=== PATIENT | female | born 1985 | race African-American/Black ===

== ENCOUNTER 2021-03-21 14:49 | Inpatient (IN) | payer OTHER ==
[~2021-03-21] VITALS: Ht 171.4 cm; Wt 82.0 kg
[~2021-03-21 14:49] MED LIST: MORPHINE SULFATE 4 MG/ML VIAL. IV PRN
[2021-03-21] MEDS ORDERED: OXYC1TAB15 PO (15:35)
[2021-03-21] MEDS ORDERED: CLIN300C9 PO (15:35)
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
[2021-03-21] MEDS ORDERED: CLINDAMYCIN 600MG PREMIX 50 ML IV ONE (16:45)
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
[2021-03-21 17:36] LABS: BASO # 0.1 x10^3/uL (0.0-0.2); BASO % 1 % (0-3); EOS # 0.1 x10^3/uL (0.0-0.7); EOS % 1 % (0-3); HEMATOCRIT 34.8 % (36.0-47.0); HEMOGLOBIN 11.5 g/dL (12.0-15.5); LYMPH % 23 % (24-48); MEAN CORPUSCULAR HEMOGLOBIN 29 pg (25-35); MEAN CORPUSCULAR HGB CONC 33 g/dL (31-37); MEAN CORPUSCULAR VOLUME 88 fL (79-100); MONO # 0.5 x10^3/uL (0.0-1.1); MONO % 6 % (0-9); NEUT % 70 % (31-73); PLATELET COUNT 473 x10^3/uL (140-400); RED BLOOD COUNT 3.94 x10^6/uL (3.50-5.40); RED CELL DISTRIBUTION WIDTH 13.7 % (11.5-14.5); WHITE BLOOD COUNT 8.7 x10^3/uL (4.0-11.0)
[2021-03-21 17:45] LABS: CALCIUM 8.7 mg/dL (8.5-10.1); CREATININE 0.8 mg/dL (0.6-1.0); GFR 99.4; POTASSIUM 4.1 mmol/L (3.5-5.1)
[2021-03-21] MEDS ORDERED: SENNOSIDES 8.6 MG TABLET PO PRN (18:00)
[2021-03-21] MEDS ORDERED: DEXTROSE 50% 25 GM / 50ML DISP.SYRIN. IV PRN (18:00)
[2021-03-21] MEDS ORDERED: ONDANSETRON PF 4 MG/2 ML VIAL. IVP PRN (18:00)
[2021-03-21] MEDS ORDERED: DOCUSATE SODIUM 100 MG CAPSULE. PO PRN (18:00)
[2021-03-21] MEDS ORDERED: ACETAMINOPHEN 325 MG TABLET. PO PRN (18:00)
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
[2021-03-21 19:15] VITALS: BP 128/73
[2021-03-21] MEDS: IV NORMAL SALINE 1000ML BAG 1,000 ML IV SCH (20:53)
[2021-03-21] MEDS: oxyCODONE/APAP 5/325 1 TAB TABLET PO PRN (21:31)
[2021-03-21] MEDS: NICOTINE 7MG PATCH. TD SCH (22:49)
[2021-03-21 23:00] VITALS: BP 127/90
--- NOTE | 2021-03-21 23:00 | NUR ---
ADMIT NOTE The patient, CASIE BAIRD, 35 y/o, F admitted by ALONSO BLOOD MD, was given written information regarding hospital policies, unit procedures and contact persons. Patient orientated to unit, admit packed reviewed, and plan of care discussed. Admission wound photos completed by [facility] in ER. Patient's allergies and preferred pharmacy verified and pt reports no active home medications at this time. Patient resting in bed, bed in lowest/locked position, and call light within reach; no other needs voiced at this time.
[2021-03-22 03:09] VITALS: BP 107/55
[2021-03-22] MEDS: IV NORMAL SALINE 1000ML BAG 1,000 ML IV SCH ×2 (06:13→15:38)
[2021-03-22] MEDS: MORPHINE SULFATE 2 MG/ML VIAL. IV PRN ×2 (06:26→09:06)
[2021-03-22 07:07] VITALS: BP 111/72
[2021-03-22 07:25] LABS: BASO % 1 % (0-3); EOS # 0.1 x10^3/uL (0.0-0.7); EOS % 2 % (0-3); HEMOGLOBIN 9.9 g/dL (12.0-15.5); LYMPH # 2.1 x10^3/uL (1.0-4.8); LYMPH % 38 % (24-48); MEAN CORPUSCULAR HEMOGLOBIN 30 pg (25-35); MEAN CORPUSCULAR HGB CONC 33 g/dL (31-37); MEAN CORPUSCULAR VOLUME 89 fL (79-100); MONO # 0.5 x10^3/uL (0.0-1.1); MONO % 9 % (0-9); NEUT # 2.8 x10^3/uL (1.8-7.7); NEUT % 51 % (31-73); PLATELET COUNT 405 x10^3/uL (140-400); RED BLOOD COUNT 3.37 x10^6/uL (3.50-5.40); RED CELL DISTRIBUTION WIDTH 13.8 % (11.5-14.5); WHITE BLOOD COUNT 5.6 x10^3/uL (4.0-11.0)
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
[2021-03-22 07:49] LABS: CALCIUM 8.3 mg/dL (8.5-10.1); CREATININE 0.8 mg/dL (0.6-1.0); GFR 99.4; MAGNESIUM 1.8 mg/dL (1.8-2.4); PHOSPHORUS 4.3 mg/dL (2.6-4.7); POTASSIUM 4.1 mmol/L (3.5-5.1)
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
[2021-03-22] MEDS ORDERED: C.DIFF MED SCREEN BY RX. MC ONE (09:00)
[2021-03-22] MEDS: NICOTINE 7MG PATCH. TD SCH (09:01)
[2021-03-22 10:29] VITALS: BP 108/68
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
[2021-03-22] MEDS: CLINDAMYCIN 600MG PREMIX 50 ML IV SCH ×2 (11:35→22:28)
[2021-03-22 14:45] VITALS: BP 121/80
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
[2021-03-22 19:00] VITALS: BP 113/77
[2021-03-22] MEDS: LACTOBACILLUS RHAMNOSUS GG 1 CAPSULE. PO SCH (20:01)
[2021-03-22] MEDS: oxyCODONE/APAP 5/325 1 TAB TABLET PO PRN (20:02)
[2021-03-22] MEDS: ZOLPIDEM 5 MG TABLET. PO PRN (22:28)
[2021-03-22 22:53] VITALS: BP 102/68
[2021-03-23] MEDS: IV NORMAL SALINE 1000ML BAG 1,000 ML IV SCH ×3 (00:54→23:48)
[2021-03-23 03:00] VITALS: BP 107/73
[2021-03-23] MEDS: CLINDAMYCIN 600MG PREMIX 50 ML IV SCH ×3 (06:17→21:04)
[2021-03-23 07:00] VITALS: BP 114/77
[2021-03-23] MEDS: LACTOBACILLUS RHAMNOSUS GG 1 CAPSULE. PO SCH ×2 (08:04→21:04)
[2021-03-23] MEDS: NICOTINE 7MG PATCH. TD SCH (08:06)
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
[2021-03-23 11:00] VITALS: BP 118/80
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
[2021-03-23] MEDS: oxyCODONE/APAP 5/325 1 TAB TABLET PO PRN ×2 (12:56→19:16)
[2021-03-23 15:00] VITALS: BP 122/68
[2021-03-23 19:00] VITALS: BP 114/59
[2021-03-23 23:00] VITALS: BP 124/70
[2021-03-23] MEDS: ZOLPIDEM 5 MG TABLET. PO PRN (23:49)
[2021-03-24] VITALS (11 sets, daily range): BP systolic 82–123; BP diastolic 45–85
[2021-03-24] MEDS: CLINDAMYCIN 600MG PREMIX 50 ML IV SCH ×3 (05:44→22:05)
[2021-03-24] MEDS ORDERED: fentaNYL PF VIAL 100 MCG/2 ML VIAL IVP PRN (06:00)
[2021-03-24] MEDS ORDERED: IV RINGERS,LACTATED 1000ML 1,000 ML IV SCH (06:00)
[2021-03-24] MEDS ORDERED: PROCHLORPERAZINE 10 MG/2 ML VIAL. IVP PRN (06:00)
[2021-03-24] MEDS: NICOTINE 7MG PATCH. TD SCH (08:38)
[2021-03-24] MEDS: MORPHINE SULFATE 2 MG/ML VIAL. IV PRN (08:39)
[2021-03-24] MEDS: IV NORMAL SALINE 1000ML BAG 1,000 ML IV SCH ×2 (08:39→19:15)
[2021-03-24] MEDS: LACTOBACILLUS RHAMNOSUS GG 1 CAPSULE. PO SCH ×2 (09:00→20:53)
[2021-03-24] MEDS ORDERED: fentaNYL PF VIAL 100 MCG/2 ML VIAL ONE ×4 (09:41→12:49)
--- NOTE | 2021-03-24 10:03 | NUR ---
SW following. Discussed with RN, pt from home with grandmother in [place], room air, NPO, COVID-19 negative. Pt having I&D today at 1130. Med Assist stating no eligible programs for pt. SW will continue to follow.
[2021-03-24] MEDS: fentaNYL PF VIAL 100 MCG/2 ML VIAL IVP PRN ×4 (10:52→12:55)
[2021-03-24] MEDS ORDERED: PROPOFOL 10 MG/ML (20ML) VIAL. IV ONE (11:06)
[2021-03-24] MEDS ORDERED: MIDAZOLAM HCL/PF 2 MG/2 ML VIAL. ONE (11:06)
[2021-03-24] MEDS ORDERED: LIDOCAINE 2% PF 5 ML VIAL. ONE (11:07)
[2021-03-24] MEDS ORDERED: DEXAMETHASONE SOD PHOS 4 MG/ML VIAL ONE (11:07)
[2021-03-24] MEDS ORDERED: ONDANSETRON PF 4 MG/2 ML VIAL. ONE (11:07)
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
[2021-03-24] MEDS ORDERED: fentaNYL PF VIAL 100 MCG/2 ML VIAL IVP ONE (11:45)
[2021-03-24] MEDS ORDERED: BUPIVACAINE-EPI 0.5%-1:200000 MPF 30 ML VIAL. ONE (12:27)
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
[2021-03-24] MEDS ORDERED: PROCHLORPERAZINE 10 MG/2 ML VIAL. ONE (13:00)
[2021-03-24] MEDS ORDERED: MORPHINE SULFATE 2 MG/ML VIAL. ONE (13:00)
[2021-03-24] MEDS: MORPHINE SULFATE 2 MG/ML VIAL. IVP PRN ×2 (13:03→13:13)
[2021-03-24] MEDS ORDERED: HYDROmorphone 2 MG/ML VIAL ONE (13:08)
[2021-03-24] MEDS: HYDROmorphone 2 MG/ML VIAL IVP PRN ×4 (13:11→13:41)
[2021-03-24] MEDS: oxyCODONE/APAP 5/325 1 TAB TABLET PO PRN ×2 (14:27→19:31)
[2021-03-25 03:22] VITALS: BP 110/72
[2021-03-25] MEDS: oxyCODONE/APAP 5/325 1 TAB TABLET PO PRN ×4 (04:15→19:25)
[2021-03-25] MEDS: IV NORMAL SALINE 1000ML BAG 1,000 ML IV SCH ×3 (05:32→23:00)
[2021-03-25] MEDS: CLINDAMYCIN 600MG PREMIX 50 ML IV SCH ×3 (05:32→21:36)
[2021-03-25 07:00] VITALS: BP 106/61
[2021-03-25 07:14] LABS: CALCIUM 8.7 mg/dL (8.5-10.1); CREATININE 0.7 mg/dL (0.6-1.0); GFR 115.9; POTASSIUM 3.7 mmol/L (3.5-5.1)
[2021-03-25 07:23] LABS: BASO % 0 % (0-3); EOS % 0 % (0-3); HEMATOCRIT 29.5 % (36.0-47.0); HEMOGLOBIN 9.9 g/dL (12.0-15.5); LYMPH # 2.1 x10^3/uL (1.0-4.8); LYMPH % 16 % (24-48); MEAN CORPUSCULAR HEMOGLOBIN 29 pg (25-35); MEAN CORPUSCULAR HGB CONC 34 g/dL (31-37); MEAN CORPUSCULAR VOLUME 88 fL (79-100); MONO # 0.8 x10^3/uL (0.0-1.1); MONO % 6 % (0-9); NEUT # 10.4 x10^3/uL (1.8-7.7); NEUT % 78 % (31-73); PLATELET COUNT 407 x10^3/uL (140-400); RED BLOOD COUNT 3.37 x10^6/uL (3.50-5.40); RED CELL DISTRIBUTION WIDTH 13.5 % (11.5-14.5); WHITE BLOOD COUNT 13.5 x10^3/uL (4.0-11.0)
[2021-03-25] MEDS: NICOTINE 7MG PATCH. TD SCH (08:30)
[2021-03-25] MEDS: LACTOBACILLUS RHAMNOSUS GG 1 CAPSULE. PO SCH ×2 (08:30→22:29)
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
[2021-03-25 11:00] VITALS: BP 102/68
--- NOTE | 2021-03-25 11:16 | NUR ---
per patient, dressings should be changed at night or tomorrow. Addendum: 03/25/21 at 1116 by JACKSON DEVI RN RN Amended: Links added.
[2021-03-25 15:00] VITALS: BP 111/62
[2021-03-25 19:00] VITALS: BP 104/61
[2021-03-25] MEDS: MORPHINE SULFATE 2 MG/ML VIAL. IV PRN ×2 (20:33→21:35)
[2021-03-25] MEDS ORDERED: HYDROmorphone 2 MG/ML VIAL IVP ONE (22:15)
[2021-03-25 23:00] VITALS: BP 110/60
[2021-03-26 03:00] VITALS: BP 107/81
[2021-03-26] MEDS ORDERED: HYDROmorphone 2 MG/ML VIAL IVP ONE (03:15)
[2021-03-26] MEDS: CLINDAMYCIN 600MG PREMIX 50 ML IV SCH ×2 (06:22→12:07)
[2021-03-26] MEDS: oxyCODONE/APAP 5/325 1 TAB TABLET PO PRN ×3 (06:29→17:30)
[2021-03-26 07:00] VITALS: BP 111/71
[2021-03-26] MEDS: IV NORMAL SALINE 1000ML BAG 1,000 ML IV SCH ×2 (07:41→19:00)
[2021-03-26] MEDS: LACTOBACILLUS RHAMNOSUS GG 1 CAPSULE. PO SCH ×2 (07:43→20:52)
[2021-03-26] MEDS: NICOTINE 7MG PATCH. TD SCH (07:43)
[2021-03-26 07:55] LABS: BASO % 1 % (0-3); EOS # 0.1 x10^3/uL (0.0-0.7); EOS % 1 % (0-3); HEMATOCRIT 27.7 % (36.0-47.0); HEMOGLOBIN 9.3 g/dL (12.0-15.5); LYMPH % 32 % (24-48); MEAN CORPUSCULAR HEMOGLOBIN 30 pg (25-35); MEAN CORPUSCULAR HGB CONC 34 g/dL (31-37); MEAN CORPUSCULAR VOLUME 88 fL (79-100); MONO # 0.6 x10^3/uL (0.0-1.1); MONO % 9 % (0-9); NEUT # 3.7 x10^3/uL (1.8-7.7); NEUT % 58 % (31-73); PLATELET COUNT 374 x10^3/uL (140-400); RED BLOOD COUNT 3.14 x10^6/uL (3.50-5.40); RED CELL DISTRIBUTION WIDTH 13.8 % (11.5-14.5); WHITE BLOOD COUNT 6.4 x10^3/uL (4.0-11.0)
[2021-03-26 08:16] LABS: CALCIUM 8.1 mg/dL (8.5-10.1); CREATININE 0.8 mg/dL (0.6-1.0); GFR 99.4; POTASSIUM 3.6 mmol/L (3.5-5.1)
[2021-03-26 11:00] VITALS: BP 121/68
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
[2021-03-26] MEDS: HYDROmorphone 2 MG/ML VIAL IVP PRN ×2 (12:07→20:52)
[2021-03-26] MEDS ORDERED: PIP/TAZO PER PHARMACY MC PRN (13:00)
[2021-03-26] MEDS: PIPERACILLIN/TAZOBACTAM 3.375 GM in IV NORMAL SALINE 50ML 50 ML IV SCH ×3 (14:29→23:46)
[2021-03-26 15:00] VITALS: BP 116/66
[2021-03-26] MEDS: DAPTOmycin (GENERIC) IVPB 490 MG in IV NORMAL SALINE 50ML 50 ML IV SCH (15:59)
[2021-03-26 19:00] VITALS: BP 113/75
[2021-03-26] MEDS ORDERED: LACTOBACILLUS RHAMNOSUS GG 1 CAPSULE. PO SCH (21:00)
[2021-03-26 23:00] VITALS: BP 118/69
[2021-03-27] MEDS: HYDROmorphone 2 MG/ML VIAL IVP PRN ×4 (01:00→18:09)
[2021-03-27 03:00] VITALS: BP 108/58
[2021-03-27] MEDS: IV NORMAL SALINE 1000ML BAG 1,000 ML IV SCH ×2 (05:00→13:56)
[2021-03-27] MEDS: PIPERACILLIN/TAZOBACTAM 3.375 GM in IV NORMAL SALINE 50ML 50 ML IV SCH (05:24)
--- NOTE | 2021-03-27 06:24 | NUR ---
IP: Pt is mrsa + in abscess requiring contact precautions.
[2021-03-27 07:00] VITALS: BP 114/68
[2021-03-27 07:04] LABS: BASO % 1 % (0-3); EOS # 0.1 x10^3/uL (0.0-0.7); EOS % 2 % (0-3); HEMOGLOBIN 9.3 g/dL (12.0-15.5); LYMPH # 1.9 x10^3/uL (1.0-4.8); LYMPH % 29 % (24-48); MEAN CORPUSCULAR HEMOGLOBIN 29 pg (25-35); MEAN CORPUSCULAR HGB CONC 33 g/dL (31-37); MEAN CORPUSCULAR VOLUME 88 fL (79-100); MONO # 0.5 x10^3/uL (0.0-1.1); MONO % 8 % (0-9); NEUT # 4.1 x10^3/uL (1.8-7.7); NEUT % 61 % (31-73); PLATELET COUNT 343 x10^3/uL (140-400); RED BLOOD COUNT 3.19 x10^6/uL (3.50-5.40); RED CELL DISTRIBUTION WIDTH 13.8 % (11.5-14.5); WHITE BLOOD COUNT 6.6 x10^3/uL (4.0-11.0)
[2021-03-27 07:18] LABS: CALCIUM 8.5 mg/dL (8.5-10.1); CREATININE 0.9 mg/dL (0.6-1.0); GFR 86.7
[2021-03-27] MEDS: NICOTINE 7MG PATCH. TD SCH (08:43)
[2021-03-27] MEDS: LACTOBACILLUS RHAMNOSUS GG 1 CAPSULE. PO SCH ×2 (08:46→21:29)
[2021-03-27] MEDS: oxyCODONE/APAP 5/325 1 TAB TABLET PO PRN ×2 (10:00→18:08)
--- NOTE | 2021-03-27 10:08 | NUR ---
SW following. Discussed with RN, pt from home with grandmother in [place], room air, regular diet, COVID-19 negative. Pt on IV abx, had surgery 03/24/21. Therapy recommending home. Pt has MRSA in wounds. SW will continue to follow.
[2021-03-27 10:46] VITALS: BP 123/68
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
[2021-03-27 11:38] LABS: ALBUMIN 3.1 g/dL (3.4-5.0); DIRECT BILIRUBIN 0.1 mg/dL (0.0-0.2); TOTAL BILIRUBIN 0.3 mg/dL (0.2-1.0); TOTAL PROTEIN 5.8 g/dL (6.4-8.2)
[2021-03-27] MEDS: MEROPENEM 500 MG in IV NORMAL SALINE 50ML 50 ML IV SCH ×2 (11:55→17:57)
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
[2021-03-27] MEDS: GABAPENTIN 100 MG CAPSULE. PO SCH ×2 (13:54→21:29)
[2021-03-27] MEDS: KETOROLAC 30 MG/ML VIAL. IVP PRN ×2 (13:55→21:29)
[2021-03-27] MEDS: DAPTOmycin (GENERIC) IVPB 490 MG in IV NORMAL SALINE 50ML 50 ML IV SCH (13:56)
[2021-03-27 14:48] VITALS: BP 116/68
[2021-03-27] MEDS: PSYLLIUM HUSK (SUGAR FREE) 1 PKT PACKET PO SCH (17:21)
[2021-03-27] MEDS: POLYETHYLENE GLYCOL 3350 17 GM PACKET. PO SCH (17:21)
[2021-03-27 19:00] VITALS: BP 120/66
[2021-03-27] MEDS: ZOLPIDEM 5 MG TABLET. PO PRN (21:29)
[2021-03-27 23:00] VITALS: BP 139/76
[2021-03-28] MEDS: MEROPENEM 500 MG in IV NORMAL SALINE 50ML 50 ML IV SCH ×4 (00:06→17:43)
[2021-03-28] MEDS: HYDROmorphone 2 MG/ML VIAL IVP PRN ×4 (00:26→20:35)
[2021-03-28] MEDS: IV NORMAL SALINE 1000ML BAG 1,000 ML IV SCH ×3 (01:00→21:00)
[2021-03-28 03:00] VITALS: BP 137/81
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
[2021-03-28 07:00] VITALS: BP_SYST 122; BP_SYST 144; BP_DIAS 77; BP_DIAS 81
[2021-03-28 07:27] LABS: BASO # 0.1 x10^3/uL (0.0-0.2); BASO % 1 % (0-3); EOS # 0.1 x10^3/uL (0.0-0.7); EOS % 2 % (0-3); HEMATOCRIT 28.5 % (36.0-47.0); HEMOGLOBIN 9.4 g/dL (12.0-15.5); LYMPH % 35 % (24-48); MEAN CORPUSCULAR HEMOGLOBIN 29 pg (25-35); MEAN CORPUSCULAR HGB CONC 33 g/dL (31-37); MEAN CORPUSCULAR VOLUME 87 fL (79-100); MONO # 0.5 x10^3/uL (0.0-1.1); MONO % 8 % (0-9); NEUT # 3.2 x10^3/uL (1.8-7.7); NEUT % 54 % (31-73); PLATELET COUNT 361 x10^3/uL (140-400); RED BLOOD COUNT 3.26 x10^6/uL (3.50-5.40); RED CELL DISTRIBUTION WIDTH 13.5 % (11.5-14.5); WHITE BLOOD COUNT 5.8 x10^3/uL (4.0-11.0)
[2021-03-28 08:12] LABS: CALCIUM 8.3 mg/dL (8.5-10.1); CREATININE 0.8 mg/dL (0.6-1.0); GFR 99.4
[2021-03-28] MEDS: GABAPENTIN 100 MG CAPSULE. PO SCH ×3 (09:15→20:34)
[2021-03-28] MEDS: LACTOBACILLUS RHAMNOSUS GG 1 CAPSULE. PO SCH ×2 (09:15→20:34)
[2021-03-28] MEDS: KETOROLAC 30 MG/ML VIAL. IVP PRN (09:15)
[2021-03-28] MEDS: NICOTINE 7MG PATCH. TD SCH (09:15)
--- NOTE | 2021-03-28 09:44 | NUR ---
SW following. Discussed with RN, pt from home with grandmother in [place], room air, regular diet. ID following, pt on IV abx, awaiting cultures and sensitivities. Per Med Assist, pt does not qualify for any Medicaid programs at this time. SW will continue to follow.
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
[2021-03-28] MEDS: oxyCODONE/APAP 5/325 1 TAB TABLET PO PRN ×2 (10:58→16:15)
[2021-03-28 11:00] VITALS: BP 134/76
[2021-03-28] MEDS: DAPTOmycin (GENERIC) IVPB 490 MG in IV NORMAL SALINE 50ML 50 ML IV SCH (14:26)
[2021-03-28] MEDS: PSYLLIUM HUSK (SUGAR FREE) 1 PKT PACKET PO SCH (14:30)
[2021-03-28] MEDS: POLYETHYLENE GLYCOL 3350 17 GM PACKET. PO SCH (14:30)
[2021-03-28 15:00] VITALS: BP 124/89
--- NOTE | 2021-03-28 15:37 | NUR ---
Wound/Ostomy Care Wound Type/Assessment: Wound care follow up for right thigh wound, CHRISTIANO Davis assessed wound, recommendations for wound vac application. NUCLEAR REACTOR OPERATOR removed 5 sutures prior to wound vac application. Wound cleansed and assessed, prevena style wound vac applied using silver foam, settings at -125mmg continuous. Pt verbalized understanding regarding POC and tolerated procedure well Treatment Recommendations/Plan: Wound vac to left thigh wound, wc will change dressing on Saturday. Education provided: purposed of wound vac and vac alarms explained to pt. Discharge Recommendations for dressings: WC will re-eval on Saturday 03/31
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
[2021-03-28 19:15] VITALS: BP 132/56
[2021-03-28] MEDS: ZOLPIDEM 5 MG TABLET. PO PRN (20:35)
[2021-03-28 23:03] VITALS: BP 131/76
[2021-03-29] MEDS: MEROPENEM 500 MG in IV NORMAL SALINE 50ML 50 ML IV SCH ×5 (00:12→23:35)
[2021-03-29] MEDS: oxyCODONE/APAP 5/325 1 TAB TABLET PO PRN ×4 (00:12→20:14)
[2021-03-29] MEDS: HYDROmorphone 2 MG/ML VIAL IVP PRN ×5 (00:48→23:39)
[2021-03-29 03:06] VITALS: BP 140/102
[2021-03-29 07:00] VITALS: BP 120/69
[2021-03-29] MEDS: IV NORMAL SALINE 1000ML BAG 1,000 ML IV SCH (07:00)
[2021-03-29 07:37] LABS: BASO # 0.1 x10^3/uL (0.0-0.2); BASO % 1 % (0-3); EOS # 0.1 x10^3/uL (0.0-0.7); EOS % 2 % (0-3); HEMATOCRIT 28.9 % (36.0-47.0); HEMOGLOBIN 9.7 g/dL (12.0-15.5); LYMPH # 1.9 x10^3/uL (1.0-4.8); LYMPH % 31 % (24-48); MEAN CORPUSCULAR HEMOGLOBIN 29 pg (25-35); MEAN CORPUSCULAR HGB CONC 34 g/dL (31-37); MEAN CORPUSCULAR VOLUME 87 fL (79-100); MONO # 0.6 x10^3/uL (0.0-1.1); MONO % 9 % (0-9); NEUT # 3.6 x10^3/uL (1.8-7.7); NEUT % 58 % (31-73); PLATELET COUNT 395 x10^3/uL (140-400); RED BLOOD COUNT 3.33 x10^6/uL (3.50-5.40); RED CELL DISTRIBUTION WIDTH 13.8 % (11.5-14.5); WHITE BLOOD COUNT 6.2 x10^3/uL (4.0-11.0)
[2021-03-29 07:56] LABS: CALCIUM 8.8 mg/dL (8.5-10.1); CREATININE 0.8 mg/dL (0.6-1.0); GFR 99.4; POTASSIUM 3.9 mmol/L (3.5-5.1)
[2021-03-29] MEDS: GABAPENTIN 100 MG CAPSULE. PO SCH ×3 (08:56→20:13)
[2021-03-29] MEDS: LACTOBACILLUS RHAMNOSUS GG 1 CAPSULE. PO SCH ×2 (08:56→20:13)
[2021-03-29] MEDS: NICOTINE 7MG PATCH. TD SCH (08:58)
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
[2021-03-29 11:00] VITALS: BP 118/62
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
[2021-03-29 15:00] VITALS: BP 129/90
[2021-03-29] MEDS: DAPTOmycin (GENERIC) IVPB 490 MG in IV NORMAL SALINE 50ML 50 ML IV SCH (15:05)
[2021-03-29] MEDS: POLYETHYLENE GLYCOL 3350 17 GM PACKET. PO SCH (16:26)
[2021-03-29] MEDS: PSYLLIUM HUSK (SUGAR FREE) 1 PKT PACKET PO SCH (16:26)
[2021-03-29 19:00] VITALS: BP 143/88
[2021-03-29] MEDS: ZOLPIDEM 5 MG TABLET. PO PRN (20:13)
[2021-03-29 23:00] VITALS: BP 124/74
[2021-03-30 03:00] VITALS: BP 115/71
[2021-03-30] MEDS: oxyCODONE/APAP 5/325 1 TAB TABLET PO PRN ×4 (04:43→20:05)
[2021-03-30] MEDS: MEROPENEM 500 MG in IV NORMAL SALINE 50ML 50 ML IV SCH ×4 (05:52→23:38)
[2021-03-30 07:00] VITALS: BP 106/62
[2021-03-30] MEDS: HYDROmorphone 2 MG/ML VIAL IVP PRN ×2 (07:08→15:53)
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
[2021-03-30 07:54] LABS: BASO # 0.1 x10^3/uL (0.0-0.2); BASO % 1 % (0-3); EOS # 0.1 x10^3/uL (0.0-0.7); EOS % 3 % (0-3); HEMATOCRIT 33.2 % (36.0-47.0); HEMOGLOBIN 10.9 g/dL (12.0-15.5); LYMPH # 1.7 x10^3/uL (1.0-4.8); LYMPH % 33 % (24-48); MEAN CORPUSCULAR HEMOGLOBIN 28 pg (25-35); MEAN CORPUSCULAR HGB CONC 33 g/dL (31-37); MEAN CORPUSCULAR VOLUME 86 fL (79-100); MONO # 0.5 x10^3/uL (0.0-1.1); MONO % 9 % (0-9); NEUT # 2.8 x10^3/uL (1.8-7.7); NEUT % 54 % (31-73); PLATELET COUNT 434 x10^3/uL (140-400); RED BLOOD COUNT 3.84 x10^6/uL (3.50-5.40); RED CELL DISTRIBUTION WIDTH 13.8 % (11.5-14.5); WHITE BLOOD COUNT 5.2 x10^3/uL (4.0-11.0)
[2021-03-30] MEDS: NICOTINE 7MG PATCH. TD SCH (08:17)
[2021-03-30 08:18] LABS: CALCIUM 8.7 mg/dL (8.5-10.1); CREATININE 0.8 mg/dL (0.6-1.0); GFR 99.4
[2021-03-30] MEDS: GABAPENTIN 100 MG CAPSULE. PO SCH ×3 (08:18→20:05)
[2021-03-30] MEDS: LACTOBACILLUS RHAMNOSUS GG 1 CAPSULE. PO SCH ×2 (08:18→20:04)
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
[2021-03-30] MEDS: KETOROLAC 30 MG/ML VIAL. IVP PRN ×2 (10:29→20:06)
--- NOTE | 2021-03-30 10:35 | NUR ---
SW following. Discussed with RN, per ID - do not place PICC line, hopefully ready for DC tomorrow (03/31/21). Wound care stated pt likely will not need the wound vac upon discharge either. SW will continue to follow.
[2021-03-30 11:00] VITALS: BP 110/68
[2021-03-30] MEDS: DAPTOmycin (GENERIC) IVPB 490 MG in IV NORMAL SALINE 50ML 50 ML IV SCH (14:12)
[2021-03-30 15:00] VITALS: BP 121/66
--- NOTE | 2021-03-30 15:19 | NUR ---
Wound Care Wound Type/Assessment: Wound care follow up for right thigh wound, vac dressing removed, CHRISTIANO Davis and Dr. Rendon assessed wounds, recommendations for continued wound vac therapy to R medial thigh wound. Wound bed is light cleaner, now with red granulation tissue present, periwound with continued induration and swelling. Wound cleansed and assessed, prevena style wound vac applied using contact layer over wound, then 2 pieces of silver foam tucked into 2 separate areas of depth, then 1 strip of silver foam applied along wound bed, settings at -125mmg continuous suction. Pt verbalized understanding regarding POC and tolerated procedure well. Treatment Recommendations/Plan: Xeroform gauze and telfa or foam dressings applied to open wounds on legs, Wound vac to right thigh wound, WCRNs will change dressing on Saturday. Education provided: purpose of wound vac and vac alarms explained to pt. Discharge Recommendations for dressings: WC will re-eval on Saturday.
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
[2021-03-30] MEDS: POLYETHYLENE GLYCOL 3350 17 GM PACKET. PO SCH (15:52)
[2021-03-30] MEDS: PSYLLIUM HUSK (SUGAR FREE) 1 PKT PACKET PO SCH (15:52)
[2021-03-30 19:00] VITALS: BP 113/61
[2021-03-30] MEDS: ZOLPIDEM 5 MG TABLET. PO PRN (20:05)
[2021-03-30 22:36] VITALS: BP 122/71
[2021-03-31] MEDS: oxyCODONE/APAP 5/325 1 TAB TABLET PO PRN ×5 (00:13→20:04)
[2021-03-31 03:00] VITALS: BP 124/75
[2021-03-31] MEDS: MEROPENEM 500 MG in IV NORMAL SALINE 50ML 50 ML IV SCH ×3 (05:54→17:42)
[2021-03-31 06:51] LABS: BASO # 0.1 x10^3/uL (0.0-0.2); BASO % 1 % (0-3); EOS # 0.1 x10^3/uL (0.0-0.7); EOS % 3 % (0-3); HEMATOCRIT 33.3 % (36.0-47.0); HEMOGLOBIN 11.1 g/dL (12.0-15.5); LYMPH # 2.4 x10^3/uL (1.0-4.8); LYMPH % 40 % (24-48); MEAN CORPUSCULAR HEMOGLOBIN 29 pg (25-35); MEAN CORPUSCULAR HGB CONC 33 g/dL (31-37); MEAN CORPUSCULAR VOLUME 86 fL (79-100); MONO # 0.5 x10^3/uL (0.0-1.1); MONO % 8 % (0-9); NEUT # 2.8 x10^3/uL (1.8-7.7); NEUT % 48 % (31-73); PLATELET COUNT 422 x10^3/uL (140-400); RED BLOOD COUNT 3.88 x10^6/uL (3.50-5.40); RED CELL DISTRIBUTION WIDTH 14.1 % (11.5-14.5); WHITE BLOOD COUNT 5.8 x10^3/uL (4.0-11.0)
[2021-03-31 07:00] VITALS: BP 112/71
[2021-03-31 07:08] LABS: CREATININE 0.8 mg/dL (0.6-1.0); GFR 99.4; POTASSIUM 4.5 mmol/L (3.5-5.1)
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
[2021-03-31] MEDS: GABAPENTIN 100 MG CAPSULE. PO SCH ×3 (08:13→20:00)
[2021-03-31] MEDS: HYDROmorphone 2 MG/ML VIAL IVP PRN ×2 (08:13→17:53)
[2021-03-31] MEDS: LACTOBACILLUS RHAMNOSUS GG 1 CAPSULE. PO SCH ×2 (08:13→20:00)
[2021-03-31] MEDS: NICOTINE 7MG PATCH. TD SCH (08:13)
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
[2021-03-31 11:00] VITALS: BP 107/65
--- NOTE | 2021-03-31 12:45 | NUR ---
SW following. Discussed with RN, pt from home with grandmother in [place], room air, regular diet. Per ID abx can be switched to oral abx for discharge. Per wound care, pt will follow up outpatient for wound care tx. CARLITA will continue to follow. Addendum: 03/31/21 at 1515 by SARI FLETCHER SW Dr. Rendon stating pt will need daily wound care or 3x week with home wound vac. Pt stating she does not feel comfortable doing her own woundcare. Samuel Ruvalcaba RN met with pt to discuss [facility] home health, Samuel would not be able to visit every day, but pt is young and teachable so they could teach and provide supplies and ensure she does it correctly before signing off. Would be more likely to have home health for longer potentially if pt has a wound vac. CARLITA will continue to follow.
[2021-03-31] MEDS: DAPTOmycin (GENERIC) IVPB 490 MG in IV NORMAL SALINE 50ML 50 ML IV SCH (14:41)
[2021-03-31 15:00] VITALS: BP 122/72
--- NOTE | 2021-03-31 17:31 | NUR ---
Wound Care: Wound vac dressing was removed today by a physician. Replaced with a Prevena style dressing using one piece of silver foam tucked into 2 tunneled areas. Contact layer over approximated edges. Good seal achieved at 125mmhG continuous suction. Will follow up Saturday04/03/21
[2021-03-31] MEDS: POLYETHYLENE GLYCOL 3350 17 GM PACKET. PO SCH (17:42)
[2021-03-31] MEDS: PSYLLIUM HUSK (SUGAR FREE) 1 PKT PACKET PO SCH (17:42)
[2021-03-31 19:00] VITALS: BP 118/70
[2021-03-31] MEDS: ZOLPIDEM 5 MG TABLET. PO PRN (20:00)
[2021-03-31 22:54] VITALS: BP 103/61
[2021-04-01] MEDS: MEROPENEM 500 MG in IV NORMAL SALINE 50ML 50 ML IV SCH ×4 (00:11→17:28)
[2021-04-01] MEDS: oxyCODONE/APAP 5/325 1 TAB TABLET PO PRN ×5 (00:12→21:03)
[2021-04-01 03:00] VITALS: BP 123/76
[2021-04-01 07:00] VITALS: BP 104/57
[2021-04-01] MEDS: LACTOBACILLUS RHAMNOSUS GG 1 CAPSULE. PO SCH ×2 (07:58→21:03)
[2021-04-01] MEDS: GABAPENTIN 100 MG CAPSULE. PO SCH ×3 (07:58→21:03)
[2021-04-01] MEDS: HYDROmorphone 2 MG/ML VIAL IVP PRN (07:58)
[2021-04-01] MEDS: NICOTINE 7MG PATCH. TD SCH (07:59)
[2021-04-01 10:21] VITALS: BP 97/66
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
[2021-04-01 14:28] VITALS: BP 106/63
[2021-04-01] MEDS: DAPTOmycin (GENERIC) IVPB 490 MG in IV NORMAL SALINE 50ML 50 ML IV SCH (14:30)
[2021-04-01] MEDS: POLYETHYLENE GLYCOL 3350 17 GM PACKET. PO SCH (16:09)
[2021-04-01] MEDS: PSYLLIUM HUSK (SUGAR FREE) 1 PKT PACKET PO SCH (16:09)
--- NOTE | 2021-04-01 17:34 | NUR ---
Pt. c/o leg cramps and not being able to relax. Dr. Serrano notified, telephone orders received.
[2021-04-01] MEDS: CYCLOBENZAPRINE 10 MG TABLET. PO PRN (17:54)
[2021-04-01 19:15] VITALS: BP 106/54
[2021-04-01] MEDS: ZOLPIDEM 5 MG TABLET. PO PRN (21:03)
[2021-04-01 23:10] VITALS: BP 164/48
[2021-04-02] MEDS: MEROPENEM 500 MG in IV NORMAL SALINE 50ML 50 ML IV SCH ×4 (01:17→17:54)
[2021-04-02] MEDS: oxyCODONE/APAP 5/325 1 TAB TABLET PO PRN ×5 (01:17→20:47)
[2021-04-02 03:27] VITALS: BP 128/75
[2021-04-02 07:00] VITALS: BP 117/60
[2021-04-02] MEDS: GABAPENTIN 100 MG CAPSULE. PO SCH ×3 (08:13→20:47)
[2021-04-02] MEDS: LACTOBACILLUS RHAMNOSUS GG 1 CAPSULE. PO SCH ×2 (08:13→20:46)
[2021-04-02] MEDS: CYCLOBENZAPRINE 10 MG TABLET. PO PRN ×2 (08:13→20:47)
[2021-04-02] MEDS: NICOTINE 7MG PATCH. TD SCH (08:14)
[2021-04-02 10:34] VITALS: BP 115/67
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
[2021-04-02] MEDS: DAPTOmycin (GENERIC) IVPB 490 MG in IV NORMAL SALINE 50ML 50 ML IV SCH (14:38)
[2021-04-02 15:00] VITALS: BP 114/69
[2021-04-02] MEDS: POLYETHYLENE GLYCOL 3350 17 GM PACKET. PO SCH (16:08)
[2021-04-02] MEDS: PSYLLIUM HUSK (SUGAR FREE) 1 PKT PACKET PO SCH (16:08)
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
[2021-04-02] MEDS ORDERED: IOHEXOL 300 MG/ML 100ML VIAL. IV ONE (18:15)
[2021-04-02] MEDS ORDERED: CONTRAST GIVEN. MC PRN (18:15)
[2021-04-02] MEDS ORDERED: IOHEXOL 300 MG/ML 100ML VIAL. ONE (18:34)
[2021-04-02 19:15] VITALS: BP 107/71
[2021-04-02] MEDS: ZOLPIDEM 5 MG TABLET. PO PRN (20:46)
[2021-04-02 23:17] VITALS: BP 104/58
[2021-04-03] MEDS: oxyCODONE/APAP 5/325 1 TAB TABLET PO PRN ×6 (01:49→23:37)
[2021-04-03] MEDS: MEROPENEM 500 MG in IV NORMAL SALINE 50ML 50 ML IV SCH ×5 (01:52→23:37)
[2021-04-03 03:14] VITALS: BP 104/48
[2021-04-03 07:00] VITALS: BP 88/36
--- NOTE | 2021-04-03 08:25 | RAD ---
Exam Date: 04/02/2021 6:[address] LOWER RIGHT EXTRIMITY WITHOUT AND WITH CONTRAST Indication: Reason: Right thigh abscess s/p I D, assess for additional fluctuant mass / Spl. Instruct ions: IV OMNI 300 75 MLS / History: Comparison: Ultrasound from March 21, 2021 TECHNIQUE: CT scan of the right thigh was performed before and following the administration of intrav enous contrast. One or more of the following dose reduction techniques were utilized: *Automated exposure control (AEC) *Adjustment of mA and/or kV according to patient size *Use of iterative reconstruction technique *CT scan done according to ALARA, or ALARA/IMAGE GENTLY FINDINGS: There are postoperative changes consistent with reported incision and drainage involving the medial s oft tissues of the distal right thigh. There is a 3.5 x 2.1 x 3.7 cm rim enhancing air-fluid collecti on involving the distal sartorius consistent with an intramuscular abscess. This collection abuts and possibly involves the medial aspect of the distal semimembranosus as well. The collection is also ad jacent to or encasing the distal tendons of the gracilis and semitendinosus. There is prominent surro unding soft tissue edema. There may be a drainage catheter in the superficial subcutaneous fat at thi s site. The other visualized muscles demonstrate normal CT appearances. Visualized osseous structures are intact without osseous destructive changes to suggest acute osteomy elitis. IMPRESSION: Postoperative changes consistent with reported incision and drainage involving the medial soft tissue s of the distal right thigh. Rim-enhancing air-fluid collection consistent with an intramuscular absc ess involving the distal sartorius, and also likely involving the medial aspect of the distal semimem branosus muscle, as well as the distal tendons of the gracilis and semitendinosus. Electronically signed by: Norm Ratliff MD (04/03/2021 8:23 AM) [facility]USBERNARDO
[2021-04-03] MEDS: LACTOBACILLUS RHAMNOSUS GG 1 CAPSULE. PO SCH ×2 (08:52→19:39)
[2021-04-03] MEDS: GABAPENTIN 100 MG CAPSULE. PO SCH ×3 (08:53→19:49)
[2021-04-03] MEDS: NICOTINE 7MG PATCH. TD SCH (08:53)
[2021-04-03] MEDS: CYCLOBENZAPRINE 10 MG TABLET. PO PRN ×2 (09:03→19:39)
--- NOTE | 2021-04-03 10:41 | NUR ---
SW following. Discussed with RN, pt from home with grandmother in [place], room air, regular diet, COVID-19 negative. Awaiting wound care decision RE wound vac. SW will continue to follow.
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
[2021-04-03 11:00] VITALS: BP 90/48
--- NOTE | 2021-04-03 11:05 | NUR ---
WV removed per Dr. Gregorio. Wet to dry dressing applied.
--- NOTE | 2021-04-03 11:57 | NUR ---
Dr. Cuevas asked that Dr. Doty be notified of CT RLL results. Dr. 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 Dr. Patricia contacted, stated he would not look at it because it was Dr. Doty's patient. Dr. Cuevas asked for message to be left with Dr. Doty's office that he would need to take a look at it. Office currently on lunch, will call back later to relay message.
--- NOTE | 2021-04-03 13:26 | NUR ---
Spoke with Traci with Dr. Doty's office. Message left for Dr. Doty re: CT results per Dr. Cuevas's request. Traci stated she would get the message to Dr. Doty.
[2021-04-03] MEDS: DAPTOmycin (GENERIC) IVPB 490 MG in IV NORMAL SALINE 50ML 50 ML IV SCH (14:00)
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
[2021-04-03 15:00] VITALS: BP 123/72
[2021-04-03] MEDS: PSYLLIUM HUSK (SUGAR FREE) 1 PKT PACKET PO SCH (16:00)
[2021-04-03] MEDS: POLYETHYLENE GLYCOL 3350 17 GM PACKET. PO SCH (16:00)
--- NOTE | 2021-04-03 16:52 | NUR ---
Wound care Spoke with HENOK Glaser re: leaving wound vac in place until tomorrow. Jailyn stated vac was removed by ID and dressed with wet to dry, and pt was going to surgery tomorrow. Will f/u pt after surgery, pending Ortho recs.
[2021-04-03 19:00] VITALS: BP 124/72
--- NOTE | 2021-04-03 22:07 | PDOC ---
PROGRESS NOTES Date of Service DATE: 04/03/21 TIME: 22:03 Subjective Subjective increasing swelling at right thigh. CT shows recurrent fluid collection Objective Vital Signs Vital Signs Date Time Temp Pulse Resp B/P (MAP) Pulse Ox O2 Delivery O2 Flow Rate FiO2 04/03/21 19:39 99 Room Air 04/03/21 19:00 97.9 92 20 124/72 (89) 97.9 04/03/21 07:20 3.0 Physical Exam open wound right thigh with wound VAC increasing induration and tenderness localized right thigh. numbness persists around knee and thigh Imaging Report reviewed, images independently reviewed. Intramuscular fluid collection series 6 image 40. [facility] [address] [place], [place] [id number] IMAGING REPORT Signed PATIENT: CASIE BAIRD ACCOUNT: [id number] : 1985 LOCATION: [address] [place] [address] AGE: 35 SEX: F EXAM STATUS: ADM IN ORD. PHYSICIAN: SALO QUINTERO MD REASON: Right thigh abscess s/p I D, assess for additional fluctuant mass PROCEDURE: CT LOWER EXTREMITY WO/W RIGHT Exam Date: 04/02/2021 6:[address] LOWER RIGHT EXTRIMITY WITHOUT AND WITH CONTRAST Indication: Reason: Right thigh abscess s/p I D, assess for additional fluctuant mass / Spl. Instructions: IV OMNI 300 75 MLS / History: Comparison: Ultrasound from March 21, 2021 TECHNIQUE: CT scan of the right thigh was performed before and following the administration of intravenous contrast. One or more of the following dose reduction techniques were utilized: *Automated exposure control (AEC) *Adjustment of mA and/or kV according to patient size *Use of iterative reconstruction technique *CT scan done according to ALARA, or ALARA/IMAGE GENTLY FINDINGS: There are postoperative changes consistent with reported incision and drainage involving the medial soft tissues of the distal right thigh. There is a 3.5 x 2.1 x 3.7 cm rim enhancing air-fluid collection involving the distal sartorius consistent with an intramuscular abscess. This collection abuts and possibly involves the medial aspect of the distal semimembranosus as well. The collection is also adjacent to or encasing the distal tendons of the gracilis and semitendinosus. There is prominent surrounding soft tissue edema. There may be a drainage catheter in the superficial subcutaneous fat at this site. The other visualized muscles demonstrate normal CT appearances. Visualized osseous structures are intact without osseous destructive changes to suggest acute osteomyelitis. IMPRESSION: Postoperative changes consistent with reported incision and drainage involving the medial soft tissues of the distal right thigh. Rim-enhancing air-fluid collection consistent with an intramuscular abscess involving the distal sartorius, and also likely involving the medial aspect of the distal semimembranosus muscle, as well as the distal tendons of the gracilis and semitendinosus. Electronically signed by: Norm Ratliff MD (04/03/2021 8:23 AM) [facility] Assessment right thigh recurrent abscess Plan Plan of Care plan for repeat I&D on 04/04 at noon NPO after MN Justicifation of Admission Dx: Justifications for Admission: Justification of Admission Dx: Yes ALETHEA IVORY MD April 03, 2021 22:07
[2021-04-03 23:00] VITALS: BP 124/82
[2021-04-03] MEDS: ZOLPIDEM 5 MG TABLET. PO PRN (23:37)
[2021-04-04] VITALS (10 sets, daily range): BP systolic 90–123; BP diastolic 46–76
[2021-04-04] MEDS: MEROPENEM 500 MG in IV NORMAL SALINE 50ML 50 ML IV SCH ×3 (05:58→17:31)
[2021-04-04] MEDS ORDERED: HYDROmorphone 2 MG/ML VIAL IVP PRN (06:00)
[2021-04-04] MEDS ORDERED: IV RINGERS,LACTATED 1000ML 1,000 ML IV SCH (06:00)
[2021-04-04] MEDS ORDERED: fentaNYL PF VIAL 100 MCG/2 ML VIAL IVP PRN ×2 (06:00)
[2021-04-04] MEDS ORDERED: PROCHLORPERAZINE 10 MG/2 ML VIAL. IVP PRN (06:00)
[2021-04-04] MEDS: oxyCODONE/APAP 5/325 1 TAB TABLET PO PRN ×3 (06:00→17:31)
[2021-04-04] MEDS ORDERED: MORPHINE SULFATE 2 MG/ML VIAL. IVP PRN (06:00)
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
[2021-04-04] MEDS: GABAPENTIN 100 MG CAPSULE. PO SCH ×3 (08:51→20:45)
[2021-04-04] MEDS: NICOTINE 7MG PATCH. TD SCH (08:51)
[2021-04-04] MEDS: LACTOBACILLUS RHAMNOSUS GG 1 CAPSULE. PO SCH ×2 (08:52→20:45)
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
[2021-04-04] MEDS ORDERED: ONDANSETRON PF 4 MG/2 ML VIAL. ONE (12:26)
[2021-04-04] MEDS ORDERED: DEXAMETHASONE SOD PHOS 4 MG/ML VIAL ONE (12:26)
[2021-04-04] MEDS ORDERED: PROPOFOL 10 MG/ML (20ML) VIAL. IV ONE (12:26)
[2021-04-04] MEDS ORDERED: LIDOCAINE 2% PF 5 ML VIAL. ONE (12:26)
[2021-04-04] MEDS ORDERED: fentaNYL PF VIAL 100 MCG/2 ML VIAL ONE (12:27)
[2021-04-04] MEDS ORDERED: BUPIVACAINE MPF 0.25% 30 ML VIAL. ONE (12:36)
[2021-04-04] MEDS ORDERED: BUPIVACAINE-EPI 0.25% 30 ML VIAL KIT. ONE (12:41)
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
[2021-04-04] MEDS ORDERED: HYDROcodone/APAP 7.5/325MG 1 TAB TABLET PO PRN ×2 (13:15→13:30)
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
[2021-04-04] MEDS: DAPTOmycin (GENERIC) IVPB 490 MG in IV NORMAL SALINE 50ML 50 ML IV SCH (14:18)
[2021-04-04] MEDS: PSYLLIUM HUSK (SUGAR FREE) 1 PKT PACKET PO SCH (16:00)
[2021-04-04] MEDS: POLYETHYLENE GLYCOL 3350 17 GM PACKET. PO SCH (16:00)
[2021-04-05] MEDS: ZOLPIDEM 5 MG TABLET. PO PRN (00:16)
[2021-04-05] MEDS: MEROPENEM 500 MG in IV NORMAL SALINE 50ML 50 ML IV SCH ×3 (00:17→12:51)
[2021-04-05] MEDS: oxyCODONE/APAP 5/325 1 TAB TABLET PO PRN ×4 (01:03→15:58)
[2021-04-05 03:00] VITALS: BP 100/47
--- NOTE | 2021-04-05 05:36 | NUR ---
Assumed pt care at this time. Pt in bed sleeping. Call light within reach.
[2021-04-05 07:00] VITALS: BP 123/70
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
[2021-04-05] MEDS: GABAPENTIN 100 MG CAPSULE. PO SCH ×2 (08:52→13:51)
[2021-04-05] MEDS: NICOTINE 7MG PATCH. TD SCH (08:52)
[2021-04-05] MEDS: LACTOBACILLUS RHAMNOSUS GG 1 CAPSULE. PO SCH (08:52)
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
[2021-04-05] MEDS ORDERED: GABA-585 PO (10:36)
[2021-04-05] MEDS ORDERED: CIPR500S2 PO (10:36)
[2021-04-05] MEDS ORDERED: DOCU-153 PO (10:36)
[2021-04-05] MEDS ORDERED: ACET325T21 PO (10:36)
[2021-04-05] MEDS ORDERED: POLY17PO52 PO (10:36)
[2021-04-05] MEDS ORDERED: HYDR-2765 PO (10:36)
[2021-04-05] MEDS ORDERED: METR500T PO (10:36)
[2021-04-05] MEDS ORDERED: LACT1CAP19 PO (10:36)
[2021-04-05] MEDS ORDERED: LINE600T12 PO (10:36)
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
[2021-04-05 11:00] VITALS: BP 120/68
--- NOTE | 2021-04-05 13:47 | NUR ---
SW following. Discussed with RN, discharge order for pt to discharge home with home health. Samuel Ruvalcaba RN notified. SW provided [employer] coupon card to patient for Zyvox - recommended [facility] due to it typically being cheaper there. Wound care to see pt today prior to discharge. Pt under the impression she will be needing a wound vac. SW awaiting wound care. SW will continue to follow.
[2021-04-05] MEDS: DAPTOmycin (GENERIC) IVPB 490 MG in IV NORMAL SALINE 50ML 50 ML IV SCH (13:51)
[2021-04-05 15:00] VITALS: BP 119/60
[2021-04-05] MEDS: PSYLLIUM HUSK (SUGAR FREE) 1 PKT PACKET PO SCH (15:21)
[2021-04-05] MEDS: POLYETHYLENE GLYCOL 3350 17 GM PACKET. PO SCH (15:22)
[2021-04-05] MEDS ORDERED: DOXY100T PO (16:01)
--- NOTE | 2021-04-05 16:02 | DISCH ---
DISCHARGE INSTRUCTIONS Condition on Discharge Condition on Discharge: Stable Activity After Discharge Activity Instructions for Disc: Activity as tolerated Driving Instructions after Dis: Do not drive, Do not drive today Weight Bearing Status after Di: Partial weight bearing Diet after Discharge Diet after Discharge: Regular Liquid Texture: Thin Liquid Wound Incision Care Wound/Incision Care: Other, see below (WOUND VAC) Checks after Discharge Checks after discharge: Check blood press - daily Community/Resources/Services Services at Discharge: Home Health Care Services Contacting the DR. after DC Call your doctor for: If your condition worsens Follow-Up Follow up with: WOUND CARE [facility], PCP CLAUDIA Treatment/Equipment after DC Adaptive Equipment Issued: None, Cane, Front wheeled walker JOSHUA PRESLEY MD April 05, 2021 16:02
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
--- NOTE | 2021-04-05 17:30 | NUR ---
Pt discharged home with self care. Discharge instructions and prescriptions discussed. Pt verbalized understanding. IV removed by patient. Wound dressing supplies provided. Pt ambulated to entrance.
== END 2021-04-05 16:55 | disposition home health service (06) | DRG 854 ==
LOC: ER 14:49 → 4 NORTH 16:47
PROVIDERS: ADMIT Internal Medicine; ATTEND Internal Medicine
PROC: 0JBL0ZZ Excision of Right Upper Leg Subcutaneous Tissue and Fascia, Open Approach (ICD-10-PCS; principal; 2021-03-24 11:30)
PROC: 0J9L0ZZ Drainage of Right Upper Leg Subcutaneous Tissue and Fascia, Open Approach (ICD-10-PCS; 2021-04-04)
DX: A41.9 Sepsis, unspecified organism (principal); L02.415 Cutaneous abscess of right lower limb; M60.009 Infective myositis, unspecified site; L03.125 Acute lymphangitis of right lower limb; S71.131A Puncture wound without foreign body, right thigh, initial encounter; D64.9 Anemia, unspecified; B95.62 Methicillin resistant Staphylococcus aureus infection as the cause of diseases classified elsewhere; B95.2 Enterococcus as the cause of diseases classified elsewhere; F12.90 Cannabis use, unspecified, uncomplicated; Z20.822 Contact with and (suspected) exposure to COVID-19; X95.9XXA Assault by unspecified firearm discharge, initial encounter; Y93.89 Activity, other specified; Y92.89 Other specified places as the place of occurrence of the external cause; Y99.8 Other external cause status; Z88.8 Allergy status to other drugs, medicaments and biological substances
CPT/HCPCS: 36415; 73090; 73702; 76881; 80048; 80076; 81025; 83735; 84100; 84145; 85025; 87040; 87071; 87075; 87076; 87077; 87186; 87426; 96365; A4209; A4223; A4930; A6223; A6253; A6402; A6449; J0780; J0878; J1100; J1170; J1885; J2185; J2250; J2270; J2405; J2543; J2704; J3010; J3490; J7030; J7120; Q9967; U0003; U0005; 97110-GP; 97116-GP; 97530-GP; 97535-GO; 99285-25; G0378